=== PATIENT | female | born 1930 | race Caucasian/White ===

== ENCOUNTER 2016-12-31 12:51 | Emergency (ER) | payer MEDICARE ==
[2016-06-12 10:41] VITALS: BMI 23.3
[~2016-12-31 12:51] MED LIST: BAYER CHEWABLE81 MG PO; BENADRYL25 MG PO; CALCIUM 600 +1 EAC3 PO; CATAPRES0.1 MG PO; CELEXA10 MG PO; CLARITIN 10 MG10 MG PO; ELIQUIS2.5 MG PO; GLUCOPHAGE500 MG PO; GUAIFENESI100 MG/5 M PO; JANUVIA50 MG PO; LEVAQUIN500 MG PO; NORVASC5 MG PO; OXYBUTYNIN CHLOR5 MG PO; PROTONIX40 MG PO; TUMS500 MG PO; ULTRAM50 MG PO; VITAMIN B-121000 MCG PO; ZADITOR5 ML EACH EYE; ZESTRIL40 MG PO; ZOCOR20 MG PO
[2016-12-31 17:10] LABS: BASOPHILS 0.5 % (0-2); EOSINOPHILS 1.2 % (0-7); HEMATOCRIT 31.8 % (36.0-48.0); HEMOGLOBIN 10.4 g/dL (12-16); IMMATURE GRANULOCYTES 0.3 % (0-5); LYMPHOCYTES 13.8 % (15-50); MCH 30.1 pg (26.0-34.0); MCHC 32.7 g/dL (31.0-37.0); MCV 91.9 fL (80.0-100.0); MEAN PLATELET VOLUME 11.4 fL (7.4-10.4); MONOCYTES 5.7 % (2-11); NEUTROPHILS 78.5 % (40-80); PLATELET COUNT 295 10x3/uL (130-400); RBC 3.46 10x6/uL (4.00-5.40); RDW 14.1 % (11.5-14.5)
[2016-12-31 17:25] LABS: ANION GAP 17.6 mmol/L (8-16); BILIRUBIN - TOTAL 0.31 mg/dL (0.2-1.3); CALCIUM 9.2 mg/dL (8.5-10.1); CARBON DIOXIDE 23.5 mmol/L (21.0-32.0); CREATININE - SERUM 2.6 mg/dL (0.6-1.3); POTASSIUM - SERUM 4.1 mmol/L (3.5-5.1); PROTEIN - SERUM 6.9 g/dL (6.4-8.2)
== END 2016-12-31 19:01 | disposition home or self-care (01) ==
LOC: D.ER 12:51
PROVIDERS: Emergency Medicine
DX: J02.9 Acute pharyngitis, unspecified (principal); E11.9 Type 2 diabetes mellitus without complications; I10 Essential (primary) hypertension

== ENCOUNTER 2017-01-12 13:56 | Inpatient (IN) | payer MEDICARE ==
[~2017-01-12] VITALS: Ht 162.6 cm; Wt 54.5 kg
[2017-01-12 14:56] LABS: BASOPHILS 0.2 % (0-2); EOSINOPHILS 0.2 % (0-7); HEMATOCRIT 34.5 % (36.0-48.0); HEMOGLOBIN 10.3 g/dL (12-16); IMMATURE GRANULOCYTES 1.7 % (0-5); LYMPHOCYTES 10.1 % (15-50); MCH 29.8 pg (26.0-34.0); MCHC 29.9 g/dL (31.0-37.0); MCV 99.7 fL (80.0-100.0); MEAN PLATELET VOLUME 11.6 fL (7.4-10.4); MONOCYTES 2.3 % (2-11); NEUTROPHILS 85.5 % (40-80); PLATELET COUNT 329 10x3/uL (130-400); RBC 3.46 10x6/uL (4.00-5.40); RDW 14.9 % (11.5-14.5); WBC 17.3 10x3/uL (4.8-10.8)
[2017-01-12 15:12] LABS: ALBUMIN 3.1 g/dL (3.4-5.0); BILIRUBIN - TOTAL 0.26 mg/dL (0.2-1.3); CALCIUM 9.7 mg/dL (8.5-10.1); CREATININE - SERUM 4.6 mg/dL (0.6-1.3); PROTEIN - SERUM 7.2 g/dL (6.4-8.2)
[2017-01-12 15:16] LABS: ANION GAP 44.1 mmol/L (8-16); CARBON DIOXIDE 4.2 mmol/L (21.0-32.0); POTASSIUM - SERUM 6.3 mmol/L (3.5-5.1)
[2017-01-12 15:18] LABS: APPEARANCE CLEAR (CLEAR); BILIRUBIN NEGATIVE (NEGATIVE); COLOR YELLOW (YELLOW); GLUCOSE NEGATIVE (NEGATIVE); KETONE SMALL mg/dL (NEGATIVE); LEUKOCYTE ESTERASE NEGATIVE (NEGATIVE); NITRITE NEGATIVE (NEGATIVE); PROTEIN NEGATIVE (NEGATIVE); SPECIFIC GRAVITY 1.015 (1.005-1.020); UROBILINOGEN NORMAL (NORMAL)
--- NOTE | 2017-01-12 18:36 | NUR ---
PT ARRIVED TO ROOM WITH FAMILY AT BEDSIDE. PTS LABS ARE VERY CRITICAL AND PT DOES NOT RESPOND TO QUESTIONS OR COMMANDS AT ALL. PT TOSSING AND TURNING IN BED WITH SLIGHT MOANS/GROANS. DAUGHTER WHOM IS POA IS AT BEDSIDE AND STATES THEY ONLY WANT COMFORT CARE AND DO NOT WANT ANYTHING TO [facility] LIFE. PT HAS WEAVER IN PLACE DRAINING TO GRAVITY AND NC @2L IN PLACE. FAMILY REQUESTED THAT I NOT DO FULL ASSESSMENT AND BOTHER PT SO ONLY A FOCUSED ASSESSMENT WAS COMPLETED. PT HAS A L.FA PIV PATENT WITH SWAB CAPS IN USE. PT IS A DNR AND DOCTORS AWARE AND AGREE. CL IN FAMILY REACH, BED IN LOWEST, SIDE RAILS X2. WILL PROVIDED PT WITH MORPHINE FOR PAIN AND TO KEEP COMFORTABLE. NO FURTHER NEEDS.
[2017-01-12 18:40] VITALS: BP 96/40; Ht 162.6 cm; Wt 54.5 kg
[2017-01-12 19:00] VITALS: BP 77/57
--- NOTE | 2017-01-12 19:13 | NUR ---
PT CONSTANTLY TURNING AND MOANING AND GROANING. FAMILY REQUESTED PRN PAIN MED TO KEEP HER COMFORTABLE. PROVIDED PT WITH MORPHINE 4MG VIA L.FA PIV AND THEN FLUSHED. FAMILY VOICED THANKS AND DENY ANY FURTHER NEEDS AT THIS TIME. CL IN REACH, BED IN LOWEST, SIDE RAILS X2. WILL GIVE OIL FILTERS INSPECTOR NURSE REPORT.
--- NOTE | 2017-01-12 19:25 | NUR ---
RECEIVED REPORT, FAMILY IN ROOM, REQUESTING COMFORT CARE ONLY, PT IS NON-RESPONSIVE, BED IS LOW, SRX2, WILL CONTINUE PLAN OF CARE
--- NOTE | 2017-01-13 04:04 | NUR ---
HELP [employer]USTRIAL PSYCHOLOGY TEACHER GET PT CLEANED UP AND REPOSITIONED, BED IS LOW, SRX3, WILL CONTINUE COMFORT CARE
--- NOTE | 2017-01-13 07:10 | NUR ---
RECEIVED REPORT. PRIMARY NURSE SWETA VIZCARRA. PATIENT LYING SLIGHTLY ON LEFT LATERAL SIDE, LETHARGIC. RESP SHALLOW AND LABORED. NO FAMILY AT BEDSIDE. PATIENT IS DNR. O2 @ 2L FOR COMFORT. COMFORT CARES CONTINUED AT THIS TIME.
--- NOTE | 2017-01-13 07:29 | NUR ---
PT IN BED UNRESPONISVE. EYES SLIGHTLY OPEN. 7 RESPIRATIONS SHALLOW AND LABORED. FAINT S1 S2 AUSCULTATED. WILL CONTINUE TO MONITOR.
--- NOTE | 2017-01-13 08:40 | NUR ---
CALLED TO ROOM BY PRIMARY NURSE, ZACKERY SOL PATIENT HAD STOPPED BREATHING. NO HEART TONES HEARD AND NO BREATH SOUNDS HEARD WITH STETHOSCOPE. PATIENT HAS PASSED.
--- NOTE | 2017-01-13 11:38 | NUR ---
0700-RECIEVED REPORT 0730-ASESSMENT COMPLETED 0840-NO RESPIRATIONS OR HEART SOUNDS NOTED CHARGE NURSE CALLED 0843-MD CALLED NO ANSWER 0856-FAMILY CALLED 0913-MD CALLED AGAIN NO ANSWER (SECOND TIME) 0920-FAMILY ARRIVED ON FLOOR 0945-DR. HERNANDEZ CALLED 1008-DR. HERNANDEZ ARRIVED ON FLOOR 1012-PT PRONOUNCED 1020-THIRD GRADE TEACHER CALLED 1023-PRAKASH CALLED 1042-THIRD GRADE TEACHER RETURNED PHONE CALL 1108-FAMILY CALLED NO ANSWER 1134-FAMILY CALLED NO ANSWER (SECOND TIME) 1136- HOME CALLED 1159- HOME ARRIVED 1204-PT LEFT FLOOR VIA STRETCHER ACCOMPANIED BY HOME STAFF
== END 2017-01-13 13:08 | DRG 64 ==
LOC: D.ER 13:56 → D.M2 17:07
PROVIDERS: Emergency Medicine; ADMIT Family Medicine
PROC: 0T9B70Z Drainage of Bladder with Drainage Device, Via Natural or Artificial Opening (ICD-10-PCS; principal; 2017-01-12)
DX: I63.9 Cerebral infarction, unspecified (principal); R40.2343 Coma scale, best motor response, flexion withdrawal, at hospital admission; R40.2223 Coma scale, best verbal response, incomprehensible words, at hospital admission; N17.9 Acute kidney failure, unspecified; F03.90 Unspecified dementia, unspecified severity, without behavioral disturbance, psychotic disturbance, mood disturbance, and anxiety; Z66 Do not resuscitate; E87.5 Hyperkalemia; E86.0 Dehydration; E83.42 Hypomagnesemia; R40.2143 Coma scale, eyes open, spontaneous, at hospital admission